=== PATIENT | female | born 1970 | race Two or more races ===

== ENCOUNTER 2016-05-08 12:49 | Emergency (ER) | payer MEDICAID ==
[2016-05-08 13:17] VITALS: BP 130/84
--- NOTE | 2016-05-08 13:44 | ED Physician Chart ---
Chief Complaint/HPI - Patient Information Date Seen:: 05/08/16 Time Seen:: 13:30 Chief Complaint:: LOWER ABDOMINAL PAIN SINCE THIS AM History of Present Illness:: This 45-year-old female presents to the emergency department complaining of onset of lower abdominal pain that began this a.m. The pain is in a bandlike distribution across the right to the left lower quadrant. There are no exacerbating or relieving factors. The pain is not accompanied by any nausea, vomiting or diarrhea. The patient has dysuria with no hematuria or urinary frequency. The patient was running a fever yesterday and she has a nonproductive cough as well. Patient is 8 para 7M last menstrual period was 2 weeks ago when it was expected. Pain does not radiate to the upper abdomen or to the back. Patient is status post appendectomy. Allergies:: Allergies Allergy/AdvReac Type Severity Reaction Status Date / Time No Known Allergies Allergy Verified 05/08/16 13:16 Vitals:: Vital Signs - 8 hr 05/08/16 05/08/16 13:17 13:18 Temp 100.3 F HR 108 RR 15 BP 130/84 130/84 O2 Sat % 98 Review of Systems - Review of Systems General/Constitutional: Fever, Chills, No weakness, No loss of appetite Skin: No skin lesions, No rash, No bruising Head: Headache, No light-headedness Eyes: No loss of vision, No diplopia ENT: No earache, No sore throat Neck: No neck pain, No swelling, No thyromegaly, No stiffness, No mass noted Cardio Vascular: No chest pain Pulmonary: SOB, Cough, No sputum, Wheezing GI: No nausea, No vomiting, No diarrhea, Pain, No hematemesis G/U: Dysuria, No frequency, No hematuria, No nacturia [employer]: No abnormal vaginal bleed Musculoskeletal: No bone or joint pain, No back pain, No muscle pain Endocrine: No polyuria, No polydipsia Psychiatric: No prior psych history, No depression, No suicidal ideation Hematopoietic: No bruising, No lymphadenopathy Neurological: No syncope, No weakness, No paresthesia, Headache, No seizure, No dizziness, No confusion, No vertigo Past Medical History - Past Medical History Past Medical History: DM Social History: Non Smoker, No Alcohol, No Drug Use, Surgical History: Appendectomy Psychiatricy History: None Family Medical History - Family Member Mother Ethnicity: Hx Family Diabetes: Yes Physical Exam - Physical Examination General/Constitutional: Awake, Well-developed, well-nourished, Alert, GCS 15, Non-toxic appearing, Ambulatory Other Gen/Cons comments:: Moderate to severe distress secondary to complained of abdominal pain. Head: Atraumatic Other Head comments:: No visible or palpable evidence of head injury. Eyes: Lids, conjuctiva normal, PERRL, EOMI Other Eyes comments:: On funduscopic examination disk margins were sharp bilaterally. No retinal hemorrhages or exudates. No A/V [place]. Skin: Nl inspection, No rash, No skin lesions, No ecchymosis, Well hydrated, No lymphadenopathy ENMT: External ears, nose nl, Nasal exam nl, Lips, teeth, gums nl, Oropharynx nl , Tonsils nl Other ENMT comments:: Good oral hydration. Neck: Nontender, No JVD, No nuchal rigidity, No mass Other Neck comments:: The neck is supple with AP flexion. Respiratory: Nl effort/Exclusion, Clear to Auscultation, No Wheeze/Rhonchi/Rales Cardio Vascular: RRR, No murmur, gallop, rubs, NL S1 S2 Other Cardio Vascular comments:: Good pulses in all four extremities. Other GI comments:: The abdomen is flat and without distention. Bowel sounds were decreased but were present. On palpation there was mild tenderness in the suprapubic region that extended into both the right and the left lower parts of the abdomen. There was no associated rebound regarding. No palpable masses, liver or spleen. No hernias. : No CVA tenderness Extremities: No tenderness or effusion, Full ROM, normal strength in all extremities, No edema Neuro/Psych: Alert/oriented, Normal sensory exam, Normal motor strength, Judgement/insight normal, Mood normal, Normal gait, No focal deficits Misc: Normal back, No paraspinal tenderness Labs/Radiology/EKG Results - Lab Results Results: Laboratory Tests 05/08/16 05/08/16 05/08/16 13:37 13:37 13:45 WBC 7.1 RBC 4.75 Hgb 11.7 Hct 35.8 MCV 75.3 L MCH 24.6 L MCHC Differential 32.7 RDW 16.4 Plt Count 347 MPV 7.9 Neutrophils % 79.9 Lymphocytes % 6.9 L Monocytes % 12.2 H Eosinophils % 0.3 Basophils % 0.7 Sodium Potassium Chloride Carbon Dioxide Anion Gap BUN Creatinine Est GFR ( Amer) Est GFR (Non-Af Amer) BUN/Creatinine Ratio Glucose Hemoglobin A1c % Calcium Total Bilirubin AST ALT Alkaline Phosphatase Total Protein Albumin Globulin Albumin/Globulin Ratio Serum , Qual Urine Source RANDOM Urine Color YELLOW Urine Clarity CLEAR Urine pH 6.0 Ur Specific [place] 1.030 Urine Protein >300 H Urine Glucose (UA) NEGATIVE Urine Ketones >=80 H Urine Blood NEGATIVE Urine Nitrate NEGATIVE Urine Bilirubin NEGATIVE Urine Urobilinogen 0.2 Ur Leukocyte Esterase NEGATIVE Urine RBC NONE SEEN Urine WBC NONE SEEN Ur Epithelial Cells NONE SEEN Urine Bacteria NONE SEEN Urine Test NEGATIVE 05/08/16 05/08/16 05/08/16 13:45 13:45 13:45 WBC RBC Hgb Hct MCV MCH MCHC Differential RDW Plt Count MPV Neutrophils % Lymphocytes % Monocytes % Eosinophils % Basophils % Sodium 128 L Potassium 3.6 Chloride 98 Carbon Dioxide 21.5 Anion Gap 12.1 BUN 8 Creatinine 0.5 L Est GFR ( Amer) > 60.0 Est GFR (Non-Af Amer) > 60.0 BUN/Creatinine Ratio 16.0 Glucose 251 H Hemoglobin A1c % 12.2 H Calcium 9.6 Total Bilirubin 0.5 AST 15 ALT 12 Alkaline Phosphatase 89 Total Protein 8.8 H Albumin 4.3 Globulin 4.5 Albumin/Globulin Ratio 1.0 Serum , Qual NEGATIVE Urine Source Urine Color Urine Clarity Urine pH Ur Specific [place] Urine Protein Urine Glucose (UA) Urine Ketones Urine Blood Urine Nitrate Urine Bilirubin Urine Urobilinogen Ur Leukocyte Esterase ne RBC Urine WBC Ur Epithelial Cells Urine Bacteria Urine Test LAB INTERPRETATION: the CBC was unremarkable except for borderline anemia. There was mild to moderate hyponatremia with the sodium of 129. There was moderate hyperglycemia with the glucose in the 250 range. Serum test was negative. The UA was negative for evidence of a UTI. PELVIC ULTRASOUND: no free fluid with a 3 cm cystic mass in the left adnexal region. Ultrasound showed that the [place] and the cystic region are both getting good blood flow. CT ABD/PELVIS: CT confirmed the presence of the 3 cm left adnexal mass. There is no free fluid or other acute pathology. No diverticulitis in the appendix was absent. No pathology in either kidney. Assessment - Assessment General Assessment: CASE SUMMARY: this 45-year-old female presented with low-grade fever and pain in the lower abdomen and pelvis region. The pain had come on abruptly approximately three hours prior to arrival the severity of the pain was 9/10 the pain did not radiate to the back. Or into the upper abdomen. There were no exacerbating or relieving factors. Pain was addressed with IV normal saline, IV Zofran and IV morphine. Good pain relief. On physical examination the patient had mild tenderness on palpation in the superpubic region with no associated rebound regarding. Ultrasound of the pelvis was negative for any free fluid and positive for 3 cm left adnexal cystic mass. Good blood flow to the cystic region. CT scan of the abdomen and pelvis was obtained for further diagnostic characterization. It confirmed the left adnexal mass but was negative for any other acute G.I. or abnormalities. The patient was offered the options of admitted action for further observation and pain control for to be discharged home with pain medications and return of symptoms got worse or were still present tomorrow morning. She and her elected to go home and she was given a prescription for [place] 10/325 number 12, one every 4 to 6 hours as needed for severe pain. She was given the usual precautions against mixing it with alcohol and taking it within six hours of driving her activities requiring alertness. Discharged in stable condition. MDM DDX SUPRA PUBIC AND PELVIC PAIN: NOT Acute appendicitis based on the patient's prior history of appendectomy. NOT Acute cystitis based on the urinalysis showing no white cells or bacteria. NOT Ectopic based on negative test. NOT Acute diverticulitis based on the CT of the abdomen. NOT Acute colitis due to the negative CT scan of the abdomen and pelvis. NOT Mesenteric ischemia based on the CT results. ED Septic Shock - . Is Septic Shock (SBP<90, OR Lactate>4 mmol\L) present?: No - <6hrs of presentation: Vital Signs: Vital Signs - 8 hr 05/08/16 05/08/16 13:17 13:18 Temp 100.3 F HR 108 RR 15 BP 130/84 130/84 O2 Sat % 98 Reassessment (Disposition) - Reassessment Reassessment Condition:: Improved - Diagnosis Diagnosis:: ABDOMINAL PAIN OF UNCLEAR ETIOLOGY, DIABETES with moderateHYPERGLYCEMIA. all MODERATE HYPONATREMIA. ED Discharge Plan - Patient Disposition Admit/Discharge/Transfer: PT DISCHARGED HOME Condition at Disposition: Stable Prescriptions: Hydrocodone/APAP 10 mg/325 mg [[place] 10 mg/325 mg] 1 tab PO Q6H PRN #12 tab PRN Reason: Pain (Severe) Instructions: Abdominal Pain, Women, Ovarian Cyst, [id number] Additional Instructions: Return to ED in 24 hours if symptoms worsen or do not improve. Take medication as prescribed.
[2016-05-08] MEDS ORDERED: Sodium Chloride 0.45% 1,000 ML IV ONE (13:50)
[2016-05-08] MEDS ORDERED: Morphine Sulfate 4 mg/mL 1mL Syr IVP ONE (13:52)
[2016-05-08] MEDS ORDERED: Morphine Sulfate 4 mg/mL 1mL Syr ONE ×2 (13:59→17:09)
[2016-05-08] MEDS ORDERED: Morphine Sulfate 2 mg/mL 1mL Syr ONE (13:59)
[2016-05-08 14:05] LABS: % BASOPHILS 0.7 % (0.0-2.0); % EOSINOPHILS 0.3 % (0.0-5.0); % LYMPHOCYTES 6.9 % (20.0-50.0); % MONOCYTES 12.2 % (2.0-10.0); % NEUTROPHILS 79.9 % (40.0-80.0); HEMATOCRIT 35.8 % (35.0-45.0); HEMOGLOBIN 11.7 gm/dL (11.7-15.5); MEAN CELL VOLUME 75.3 fl (81-100); MEAN CORPUSCULAR HEMOGLOBIN 24.6 pg (27.0-31.0); MEAN CORPUSCULAR HGB CONC 32.7 pg (28.0-36.0); MEAN PLATELET VOLUME 7.9 fl; NEUTROPHILE ABSOLUTE 5.7 Th/cmm (1.8-8.0); PLATELET COUNT 347 Th/cmm (150-400); RED BLOOD COUNT 4.75 Mil/cmm (3.80-5.10); RED CELL DISTRIBUTION WIDTH 16.4 % (11.5-20.0); WHITE BLOOD COUNT 7.1 Th/cmm (4.8-10.8)
[2016-05-08 14:20] LABS: ALKALINE PHOSPHATASE 89 U/L (34-104); ANION GAP 12.1 (7.0-16.0); BILIRUBIN,TOTAL 0.5 mg/dL (0.3-1.0); BUN - UREA NITROGEN 8 mg/dL (7-25); CALCIUM SERUM 9.6 mg/dL (8.6-10.3); CARBON DIOXIDE 21.5 mEq/L (21.0-31.0); CHLORIDE 98 mEq/L (98-107); CREATININE - SERUM 0.5 mg/dL (0.6-1.2); GLUCOSE 251 mg/dL (70-105); POTASSIUM SERUM 3.6 mEq/L (3.5-5.1); SGOT 15 U/L (13-39); SGPT/ALT 12 U/L (7-52); SODIUM SERUM 128 mEq/L (136-145)
[2016-05-08 14:27] LABS: URINE BILIRUBIN NEGATIVE (NEGATIVE); URINE BLOOD NEGATIVE (NEGATIVE); URINE COLOR YELLOW; URINE GLUCOSE (UA) NEGATIVE (NEGATIVE); URINE KETONE >=80 mg/dL (NEGATIVE)
[2016-05-08 14:29] LABS: URINE PROTEIN >300 mg/dL (NEGATIVE); URINE UROBILINOGEN 0.2 E.U./dL (0.2 - 1.0)
[2016-05-08 14:30] LABS: URINE BACTERIA NONE SEEN /hpf (NONE SEEN); URINE EPITHELIAL CELLS NONE SEEN /lpf (FEW); URINE RBC NONE SEEN /hpf (0-5); URINE WBC NONE SEEN /hpf (0-5)
--- NOTE | 2016-05-09 12:06 | Diagnostic Imaging Report ---
CT abdomen and pelvis without intravenous contrast Indication: Size onset lower abdominal pain Comparison: Pelvic ultrasound the same day, Technique: Axial images were obtained from the lung bases to the bilateral proximal femurs without IV contrast. Coronal reconstructions were made. total DLP: 513, CTDI 10.4 FINDINGS: Hypoventilatory and atelectatic changes of the lung bases are noted. Assessment of the solid organs is limited due to lack of IV contrast. No evidence of focal hepatic lesions. Fatty liver is noted. No focal splenic, pancreatic, or adrenal lesions. No evidence of hydronephrosis or focal renal lesions. 3 cm left adnexal cystic lesion is noted. Mildly prominent uterus is noted. No evidence of bowel obstruction. The appendix is not visualized. No free fluid or free air. The osseous structures demonstrate no acute abnormalities. IMPRESSION: The appendix is not visualized. No evidence of bowel obstruction No evidence of free fluid. 3 cm left adnexal cystic lesion and mildly prominent uterus. Recommend follow-up with ultrasound. Hepatic steatosis.
--- NOTE | 2016-05-09 12:09 | Diagnostic Imaging Report ---
Ultrasound pelvis HISTORY: Pelvic pain. LMP is 04/29/2016. Beta hCG is negative. COMPARISON: CT abdomen and pelvis the same day Technique: Longitudinal and transverse sonographic sector images of the pelvis were obtained transabdominally and transvaginally. FINDINGS: The uterus measures 10.9 x 5.6 x 6.4 cm and demonstrates a heterogeneous echotexture. Endometrium measures 1.3 cm. Multiple nabothian cysts of the cervix are noted demonstrating internal echoes. The right ovary measures 2.1 x 2.0 cm. The left ovary measures 3.4 x 3 cm demonstrating a large 2.8 cm cyst with few internal echoes. Vascular flow to the ovaries is noted. No evidence of free fluid. IMPRESSION: 2.8 cm left ovarian cyst with few internal echoes which may be due to proteinaceous or hemorrhagic components. A follow-up ultrasound in 4-6 weeks is recommended to ensure resolution Additional small right ovarian fluid cystic changes. The endometrium measures 1.3 cm please correlate with menstrual cycle. Nabothian cyst of the cervix some which may be complex.
== END 2016-05-08 18:25 | disposition home or self-care (01) ==
LOC: ER 12:49
DX: R10.30 Lower abdominal pain, unspecified (principal); E11.65 Type 2 diabetes mellitus with hyperglycemia; E87.1 Hypo-osmolality and hyponatremia; Z90.49 Acquired absence of other specified parts of digestive tract
CPT/HCPCS: 99285; 96374; 96375; 96376; 76856; 74176; 36415; 85025; 81001; 83036; 81025 ×2; 80053; 87040 ×2; J2270; J2405 ×2; J7030